=== PATIENT | male | born 1955 | race African-American/Black ===

== ENCOUNTER 2017-06-17 04:09 | Emergency (ER) | payer SELFPAY ==
[2017-06-17 10:32] LABS: Bilirubin Negative (Negative); Blood, Urine Negative (Negative); Glucose, Urine (Dipstick) Negative (Negative); Ketone, Urine Negative (Negative); Nitrite Negative (Negative); Protein, Urine (Dipstick) Negative (Neg-Trace)
[2017-06-17 10:35] LABS: Bacteria/HPF None Seen HPF (None Seen); Hyaline Casts/LPF 4-6 HYALINE CAST LPF (0-3 Hyaline); RBC/HPF 0-3 HPF (0-3); WBC/HPF 21-50 HPF (0-3)
[2017-06-17 10:38] LABS: Anion Gap 10 mmol/L (10-20); BUN (Urea Nitrogen) 9 mg/dL (8.4-25.7); Calc. Creatinine Clearance 0 mL/min (70-130); Calcium 10.4 mg/dL (7.8-10.44); Carbon Dioxide 26 mmol/L (23-31); Chloride 105 mmol/L (98-107); Estimated GFR-MDRD 81
[2017-06-17 10:47] LABS: Renal Epithelial 0-3 HPF (0-3); Transitional Epithelial 0-3 HPF (0-3)
== END 2017-06-17 12:28 | disposition home or self-care (01) ==
LOC: ERS 04:09
DX: N39.0 Urinary tract infection, site not specified (principal); E86.0 Dehydration; F17.210 Nicotine dependence, cigarettes, uncomplicated
CPT/HCPCS: 51702; 80048; 81003; 81015; 96360

== ENCOUNTER 2018-09-19 12:54 | Emergency (ER) | payer SELFPAY ==
[2018-09-19] MEDS ORDERED: metroNIDAZOLE 250 MG TAB ONE (13:47)
[2018-09-19] MEDS ORDERED: Azithromycin 250 MG TAB ONE (13:47)
[2018-09-19] MEDS ORDERED: Lidocaine 1% PF 5 ML VIAL ONE (13:47)
[2018-09-19] MEDS ORDERED: cefTRIAXone\\ROCEPHIN 250 MG VIAL ONE (13:47)
[2018-09-19 14:11] LABS: Bilirubin Small (Negative); Blood, Urine Trace (Negative); Clarity CLEAR (Clear); Glucose, Urine (Dipstick) Negative (Negative); Leukocyte Trace (Negative); Nitrite Negative (Negative); Protein, Urine (Dipstick) Trace mg/dL (Neg-Trace); Specific Gravity, Urine 1.028 (1.002-1.036); pH, Urine 6.5 (5.0-9.0)
[2018-09-19 14:13] LABS: Bacteria/HPF None Seen HPF (None Seen); Hyaline Casts/LPF 0-3 HYALINE CAST LPF (0-3 Hyaline); Squamous Epithelial 0-3 HPF (0-3); WBC/HPF 0-3 HPF (0-3)
[2018-09-22 20:25] LABS: Chlamydia by PCR Not Detected (NotDetected); GC by PCR Not Detected (NotDetected)
== END 2018-09-19 14:27 | disposition home or self-care (01) ==
LOC: ERS 12:54
DX: R36.9 Urethral discharge, unspecified (principal)
CPT/HCPCS: 81003; 81015; 87491; 87591; 96372; J0696; J2001

== ENCOUNTER 2018-11-19 15:51 | Outpatient (CLI) | payer OTHER ==
--- NOTE | 2018-11-19 16:20 | RAD ---
XR Lumbar Spine 2 Or 3 View HISTORY: Disability exam Findings: The vertebral bodies are normal in height. Minimal osteophytic changes are seen at L5-S1. S ome mild degenerative facet changes are noted in the lower lumbar spine. Pedicles appear intact. No spondylolisthesis. IMPRESSION: Minimal arthritic changes of the spine.
--- NOTE | 2018-11-19 16:38 | RAD ---
TWO VIEWS LEFT KNEE 11/19/18 PROVIDED CLINICAL HISTORY: Disability exam. FINDINGS: No evidence for fracture or other acute osseous abnormality. Small osteophytes are seen about the kne e. Alignment appears anatomic. Minimal medial femorotibial joint space narrowing. IMPRESSION: Mild degenerative change. POS: OFF
--- NOTE | 2018-11-19 16:40 | RAD ---
RIGHT KNEE RADIOGRAPHS TWO VIEWS: 11/19/18 PROVIDED CLINICAL HISTORY: Disability exam. FINDINGS: No evidence for fracture or other acute osseous abnormality. Alignment appears anatomic. Joint spaces appear preserved. Minimal osteophyte formation about the knee. IMPRESSION: No evidence for an acute osseous abnormality or significant arthropathy. POS: OFF
== END 2018-11-19 15:52 | disposition home or self-care (01) ==
LOC: BICRAD 15:51
PROVIDERS: ATTEND Internal Medicine
DX: Z02.71 Encounter for disability determination (principal); M17.12 Unilateral primary osteoarthritis, left knee; M47.816 Spondylosis without myelopathy or radiculopathy, lumbar region
CPT/HCPCS: 72100

== ENCOUNTER 2019-08-24 03:35 | Emergency (ER) | payer SELFPAY | END 2019-08-24 04:09 | disposition home or self-care (01) | LOC: ERS 03:35 | DX: N47.6 Balanoposthitis (principal); F17.210 Nicotine dependence, cigarettes, uncomplicated | CPT/HCPCS: 99283 ==

== ENCOUNTER 2020-12-07 19:00 | Emergency (ER) | payer SELFPAY ==
[2020-12-07] MEDS ORDERED: Lidocaine 1% w/Epinephrine 1:100K 20 ML VIAL ONE (19:14)
[2020-12-07] MEDS ORDERED: Boostrix 0.5 ML (Tdap) VIAL ONE (19:23)
== END 2020-12-07 20:02 | disposition home or self-care (01) ==
LOC: ERS 19:00
DX: S51.811A Laceration without foreign body of right forearm, initial encounter (principal); F17.210 Nicotine dependence, cigarettes, uncomplicated; W25.XXXA Contact with sharp glass, initial encounter
CPT/HCPCS: 12002; 90471; 90715

== ENCOUNTER 2021-01-11 10:15 | Emergency (ER) | payer SELFPAY ==
[~2021-01-11 10:15] MED LIST: Iopamidol 370 76% 100 ML VIAL ONE
[2021-01-11 12:49] LABS: #Lymphocytes 0.9 thou/uL (1.20-3.40); #Monocytes 0.5 thou/uL (0.11-0.59); #Neutrophils 6.5 thou/uL (1.40-6.50); %Basophils 0.4 % (0.0-1.0); %Eosinophils 0.2 % (0.0-10.0); %Lymphocytes 11.7 % (21.0-51.0); %Monocytes 5.7 % (0.0-10.0); Hemoglobin 15.6 g/dL (14.0-18.0); Mean Corpuscular HGB CONC 31.9 g/dL (32.0-36.0); Mean Corpuscular Hemoglobin 28.9 pg (27.0-31.0); Mean Corpuscular Volume 90.6 fL (78.0-98.0); Mean Platelet Volume 7.8 fL (7.4-10.4); Platelet Count 167 thou/uL (130-400); White Blood Cell (WBC) Count 7.9 thou/uL (4.8-10.8)
[2021-01-11] MEDS ORDERED: Ondansetron PF 4 MG/2 ML Vial ONE (12:54)
[2021-01-11] MEDS ORDERED: Ketorolac Tromethamine 30 MG/ML VIAL ONE (12:54)
[2021-01-11 13:10] LABS: ALT (SGPT) 15 U/L (8-55); AST (SGOT) 22 U/L (5-34); Albumin 4.4 g/dL (3.4-4.8); Alkaline Phosphatase 93 U/L (40-110); Anion Gap 17 mmol/L (10-20); BUN (Urea Nitrogen) 16 mg/dL (8.4-25.7); Bilirubin, Total 0.4 mg/dL (0.2-1.2); Calc. Creatinine Clearance 0 mL/min (70-130); Calcium 9.7 mg/dL (7.8-10.44); Carbon Dioxide 17 mmol/L (23-31); Chloride 108 mmol/L (98-107); Globulin 3.8 g/dL (2.4-3.5); Glucose 100 mg/dL (80-115); Potassium 5.2 mmol/L (3.5-5.1); Protein, Total 8.2 g/dL (5.8-8.1); Sodium 137 mmol/L (136-145)
[2021-01-11 15:26] LABS: Bacteria/HPF None Seen HPF (None Seen); Bilirubin Negative (Negative); Blood, Urine Trace (Negative); Clarity Clear (Clear); Glucose, Urine (Dipstick) Normal (Negative); Ketone, Urine Negative (Negative); Leukocyte Negative Leu/uL (Negative); Nitrite Negative (Negative); Protein, Urine (Dipstick) Negative (Neg-Trace); Squamous Epithelial None Seen HPF (0-3); Urobilinogen Normal mg/dL (Less than 2); WBC/HPF 0-3 HPF (0-3); pH, Urine 7.5 (5.0-9.0)
== END 2021-01-11 16:12 | disposition home or self-care (01) ==
LOC: ERS 10:15
DX: N20.2 Calculus of kidney with calculus of ureter (principal); N17.9 Acute kidney failure, unspecified; R31.9 Hematuria, unspecified; F17.210 Nicotine dependence, cigarettes, uncomplicated
CPT/HCPCS: 74177; 80053; 81003; 81015; 83690; 85025; 87086; 93005; 96374; 96375; J1885; J2405; Q9967

== ENCOUNTER 2022-12-03 00:20 | Inpatient (IN) | payer MEDICARE, MEDICAID ==
[2022-12-03 00:39] LABS: #Monocytes 0.6 thou/uL (0.11-0.59); #Neutrophils 5.5 thou/uL (1.40-6.50); %Basophils 0.3 % (0.0-1.0); %Eosinophils 0.5 % (0.0-10.0); %Lymphocytes 16.5 % (21.0-51.0); %Monocytes 8.1 % (0.0-10.0); %Neutrophils 74.3 % (42.0-75.0); Mean Corpuscular HGB CONC 31.2 g/dL (32.0-36.0); Mean Corpuscular Hemoglobin 27.5 pg (27.0-31.0); Mean Platelet Volume 9.1 fL (7.4-10.4); Platelet Count 232 10x3/uL (130-400); RBC Distribution Width 14.1 % (11.5-14.5); White Blood Cell (WBC) Count 7.4 10x3/uL (4.8-10.8)
[2022-12-03] MEDS ORDERED: Morphine 4 MG/ML VIAL ONE ×2 (01:04→12:30)
[2022-12-03] MEDS ORDERED: Ondansetron PF 4 MG/2 ML Vial ONE (01:04)
[2022-12-03 01:29] LABS: ALT (SGPT) 15 U/L (8-55); AST (SGOT) 17 U/L (5-34); Albumin 4.1 g/dL (3.4-4.8); Alkaline Phosphatase 80 U/L (40-110); Anion Gap 14 mmol/L (10-20); BUN (Urea Nitrogen) 12 mg/dL (8.4-25.7); Bilirubin, Total 0.3 mg/dL (0.2-1.2); Calc. Creatinine Clearance 0 mL/min (70-130); Calcium 9.9 mg/dL (7.8-10.44); Carbon Dioxide 21 mmol/L (23-31); Chloride 105 mmol/L (98-107); Estimated GFR 80; Globulin 4.2 g/dL (2.4-3.5); Glucose 101 mg/dL (80-115); Potassium 4.4 mmol/L (3.5-5.1); Protein, Total 8.3 g/dL (5.8-8.1); Sodium 136 mmol/L (136-145)
[2022-12-03 01:48] LABS: PTT 30.8 sec (22.9-36.1); Prothrombin Time 13.7 sec (12.0-14.7)
[2022-12-03] MEDS ORDERED: Dextrose 50% Abboject 50 ML SYRINGE SLOW IVP PRN (02:33)
[2022-12-03] MEDS ORDERED: Ondansetron PF 4 MG/2 ML Vial IVP PRN (02:33)
[2022-12-03] MEDS ORDERED: Ondansetron ODT 4 MG TAB PO PRN (02:33)
[2022-12-03] MEDS ORDERED: hydrALAZINE 20 MG/ML VIAL SLOW IVP PRN (02:33)
[2022-12-03] MEDS ORDERED: Ipratropium/Albuterol 3 ML NEB NEB PRN (02:33)
[2022-12-03] MEDS ORDERED: Dextrose 5% in Water 1,000 ML IV PRN (02:33)
[2022-12-03] MEDS ORDERED: Glucagon 1 MG/ML KIT IM PRN (02:33)
[2022-12-03] MEDS ORDERED: Cyclobenzaprine 10 MG TAB PO PRN (02:36)
[2022-12-03] MEDS ORDERED: traMADol HCl 50 MG TAB PO PRN (02:36)
[2022-12-03] MEDS ORDERED: Ibuprofen 200 MG TAB PO PRN (02:43)
[2022-12-03 04:06] VITALS: BMI 23.1
[2022-12-03] MEDS: Acetaminophen 500 MG TAB PO SCH ×3 (05:40→17:57)
[2022-12-03] MEDS: Gabapentin 100 MG CAP PO SCH ×3 (05:40→22:35)
[2022-12-03] MEDS: traMADol HCl 50 MG TAB PO SCH ×4 (05:41→18:04)
[2022-12-03] MEDS: Ipratropium/Albuterol 3 ML NEB NEB SCH ×3 (07:26→19:20)
[2022-12-03] MEDS: Senokot S 8.6-50 MG TAB PO SCH ×2 (08:44→21:38)
[2022-12-03] MEDS: Famotidine 20 MG TAB PO SCH ×2 (08:44→21:40)
[2022-12-03] MEDS: Polyethylene Glycol 3350 17 GM Packet PO SCH (08:45)
[2022-12-03] MEDS ORDERED: Lidocaine 1% (PF) 30 ML VIAL ONE (09:26)
[2022-12-03] MEDS ORDERED: Lidocaine 1% (PF) 30 ML VIAL SC SCH (09:30)
[2022-12-03] MEDS ORDERED: Iopamidol 370 76% 100 ML VIAL ONE (15:28)
[2022-12-04] MEDS: traMADol HCl 50 MG TAB PO SCH ×5 (00:35→23:36)
[2022-12-04] MEDS: Acetaminophen 500 MG TAB PO SCH ×5 (00:35→23:36)
[2022-12-04] MEDS: Gabapentin 100 MG CAP PO SCH (05:55)
[2022-12-04] MEDS: Ipratropium/Albuterol 3 ML NEB NEB SCH ×3 (07:04→19:16)
[2022-12-04] MEDS ORDERED: Gabapentin 100 MG CAP PO SCH (07:36)
[2022-12-04] MEDS ORDERED: Morphine 4 MG/ML VIAL SLOW IVP PRN (07:36)
[2022-12-04] MEDS ORDERED: Gabapentin 300 MG CAP PO SCH (08:15)
[2022-12-04] MEDS: Polyethylene Glycol 3350 17 GM Packet PO SCH (10:08)
[2022-12-04] MEDS: Senokot S 8.6-50 MG TAB PO SCH ×2 (10:08→21:18)
[2022-12-04] MEDS: Famotidine 20 MG TAB PO SCH ×2 (10:09→21:18)
[2022-12-04] MEDS: Gabapentin 300 MG CAP PO SCH ×2 (14:31→21:19)
[2022-12-04] MEDS ORDERED: Cyclobenzaprine 10 MG TAB PO PRN (14:45)
[2022-12-05] MEDS: Gabapentin 300 MG CAP PO SCH ×3 (06:01→21:37)
[2022-12-05] MEDS: Acetaminophen 500 MG TAB PO SCH ×4 (06:02→23:52)
[2022-12-05] MEDS: traMADol HCl 50 MG TAB PO SCH ×4 (06:03→23:53)
[2022-12-05 06:14] LABS: #Eosinphils 0.1 thou/uL (0.0-0.7); #Monocytes 0.4 thou/uL (0.11-0.59); #Neutrophils 2.5 thou/uL (1.40-6.50); %Basophils 0.9 % (0.0-1.0); %Eosinophils 2.3 % (0.0-10.0); %Monocytes 9.4 % (0.0-10.0); %Neutrophils 58.2 % (42.0-75.0); Hemoglobin 13.8 g/dL (14.0-18.0); Mean Corpuscular Hemoglobin 27.4 pg (27.0-31.0); Mean Corpuscular Volume 88.3 fl (78.0-98.0); Mean Platelet Volume 10.6 fL (7.4-10.4); Platelet Count 197 10x3/uL (130-400); RBC Distribution Width 14.1 % (11.5-14.5); Red Blood Cell (RBC) Count 5.04 mill/uL (4.70-6.10); White Blood Cell (WBC) Count 4.4 10x3/uL (4.8-10.8)
[2022-12-05 06:42] LABS: Anion Gap 14 mmol/L (10-20); BUN (Urea Nitrogen) 10 mg/dL (8.4-25.7); Calc. Creatinine Clearance 87 mL/min (70-130); Carbon Dioxide 20 mmol/L (23-31); Chloride 105 mmol/L (98-107); Estimated GFR 96; Glucose 93 mg/dL (80-115); Phosphorus 3.3 mg/dL (2.3-4.7); Potassium 4.6 mmol/L (3.5-5.1); Sodium 134 mmol/L (136-145)
[2022-12-05] MEDS: Ipratropium/Albuterol 3 ML NEB NEB SCH ×2 (07:39→19:09)
[2022-12-05] MEDS: Senokot S 8.6-50 MG TAB PO SCH ×2 (08:42→21:37)
[2022-12-05] MEDS: Famotidine 20 MG TAB PO SCH ×2 (08:42→21:38)
[2022-12-05] MEDS: Polyethylene Glycol 3350 17 GM Packet PO SCH (08:42)
[2022-12-06] MEDS: Gabapentin 300 MG CAP PO SCH ×2 (05:15→14:48)
[2022-12-06] MEDS: traMADol HCl 50 MG TAB PO SCH ×2 (05:16→11:37)
[2022-12-06] MEDS: Acetaminophen 500 MG TAB PO SCH ×2 (05:16→11:36)
[2022-12-06] MEDS: Ipratropium/Albuterol 3 ML NEB NEB SCH ×2 (07:04→14:42)
[2022-12-06] MEDS: Polyethylene Glycol 3350 17 GM Packet PO SCH (08:41)
[2022-12-06] MEDS: Famotidine 20 MG TAB PO SCH (08:41)
[2022-12-06] MEDS: Senokot S 8.6-50 MG TAB PO SCH (08:41)
[2022-12-06] MEDS ORDERED: Ipratropium/Albuterol 3 ML NEB NEB PRN (15:09)
[2022-12-06 16:04] VITALS: BP 132/88; TEMP 97.7
== END 2022-12-06 16:27 | disposition home or self-care (01) | DRG 200 ==
LOC: ERS 00:20 → SURG A 02:36 → OBSVTOIN 12-04 07:37
PROVIDERS: ADMIT Student in an Organized Health Care Education/Training Program; ATTEND Student in an Organized Health Care Education/Training Program
PROC: 0W9B30Z Drainage of Left Pleural Cavity with Drainage Device, Percutaneous Approach (ICD-10-PCS; principal; 2022-12-04)
DX: S27.2XXA Traumatic hemopneumothorax, initial encounter (principal); J93.82 Other air leak; F17.210 Nicotine dependence, cigarettes, uncomplicated; W45.8XXA Other foreign body or object entering through skin, initial encounter
CPT/HCPCS: 36415; 71045; 71046; 71260; 80048; 80053; 83735; 84100; 84484; 85025; 85610; 85730; 93005; 94640; 94760; 96374; 96375; 96376; G0378; J2001; J2270; J2405; J7620; Q9967